=== PATIENT | female | born 1965 | race African-American/Black ===

== ENCOUNTER → 2018-02-22 | Outpatient (CLI) | payer MEDICAID | LOC: SUPIMAGING 15:54 → EDSTATUS 15:59 | PROVIDERS: ATTEND Family Medicine | DX: R05 Cough (principal) | CPT/HCPCS: 71046-PN ==

== ENCOUNTER 2018-03-07 16:48 | Emergency (ER) | payer MEDICAID ==
--- NOTE | 2018-03-07 17:15 | EDPHY ---
H & P Time Seen by Provider: 03/07/18 17:00 HPI/ROS: CHIEF COMPLAINT: Chest pain, shortness of breath HISTORY OF PRESENT ILLNESS: Patient is a 52-year-old female who presents emergency department after having sudden onset of shortness of breath and chest pressure. Patient's symptoms started approximately 30 min prior to arrival. The patient states she was sitting at the counter reading her iPad. She began to notice her vision changing in both eyes. She then became short of breath. She began to breathe rapidly. She felt her chest tightness. She subsequently had spasm in both of her hands. She called EMS. On EMS arrival she was given an aspirin. In route her symptoms improved. The patient denies any chest pain at this time. She has had no leg pain or swelling. No recent travel. The patient does report previous episode of an anxiety attack but it was"not this severe." REVIEW OF SYSTEMS: 10 systems were reveiwed and are negative with the exception of the elements mentioned in the history of present illness. Past Medical/Surgical History: Anxiety, mixed connective tissue disorder, Raynaud's syndrome Smoking Status: Never smoked Physical Exam: Vitals noted GENERAL: Well-appearing, in no acute distress, alert. HEENT: Eyes normal to inspection, normal pharynx, no signs of dehydration. NECK: Normal, supple. RESPIRATORY: Clear to auscultation bilaterally, no rales, rhonchi or wheezing. CVS: Regular rate and rhythm, no rubs, murmurs, or gallops. ABDOMEN: Soft, nontender, nondistended, no organomegaly. BACK: Normal to inspection, no CVA tenderness. SKIN: Normal color, no rash, warm, dry. No pallor. EXTREMITIES: No pedal edema, no calf tenderness, no Homans sign or cords, no joint swelling. NEURO/PSYCH: Alert and oriented, normal mood and affect, normal motor sensory exam. No obvious cranial nerve deficit. Constitutional: Initial Vital Signs Temperature (C) 36.7 C 03/07/18 16:51 Heart Rate 83 03/07/18 16:51 Respiratory Rate 18 03/07/18 16:51 Blood Pressure 139/90 H 03/07/18 16:51 O2 Sat (%) 98 03/07/18 16:51 O2 Delivery Mode Room Air Allergies/Adverse Reactions: prednisone Allergy (Uncoded 03/07/18 16:56) Home Medications: Medication Instructions Recorded Levothyroxine 03/07/18 Medical Decision Making ED Course/Re-evaluation: I met EMS on arrival in took report from the oil expert. I saw the patient at that time. In the emergency department I discussed possible etiologies with the patient. I answered all her questions. Laboratory studies, EKG and chest x -ray were ordered. EKG shows normal sinus rhythm, normal rate, normal axis, normal intervals. There are no ST or T-wave abnormalities. Troponin is 0.0. There is registration issue with the patient's record. Lab orders needed to be resent. On recheck the patient was doing well. She had no complaints. 193: Repeat EKG: EKG shows normal sinus rhythm, normal rate, normal axis, normal intervals. There are no ST or T-wave abnormalities. EKG is normal as interpreted by me. Repeat troponin 0.0 I rechecked the patient. She was without complaints. I discussed possible etiologies with the patient. I discussed limitations of studies thus far. Through shared decision making the patient the patient will be discharged home. She is given warnings prior to leaving. She will return with worsening symptoms. Differential Diagnosis: My differential includes but is not limited to ACS, acute NH, dissection, aneurysm, PE, myocarditis, pericarditis, pancreatitis, cholecystitis, anxiety - Data Points Laboratory Results: Laboratory Results 03/07/18 17:35 03/07/18 17:35 03/07/18 03/07/18 03/07/18 17:39 17:35 17:35 WBC RBC Hgb Hct MCV MCH MCHC RDW Plt Count MPV Neut % (Auto) Lymph % (Auto) Murray % (Auto) Eos % (Auto) Baso % (Auto) Nucleat RBC Rel Count Absolute Neuts (auto) Absolute Lymphs (auto) Absolute Monos (auto) Absolute Eos (auto) Absolute Basos (auto) Absolute Nucleated RBC Immature Gran % Immature Gran # D-Dimer 0.32 ug/mLFEU ug/mLFEU (0.00-0.50) Sodium 138 mEq/L mEq/L (135-145) Potassium 4.2 mEq/L mEq/L (3.5-5.2) Chloride 108 mEq/L mEq/L (97-110) Carbon Dioxide 21 mEq/l L mEq/l (22-31) Anion Gap 9 mEq/L mEq/L (6-14) BUN 15 mg/dL mg/dL (7-23) Creatinine 1.0 mg/dL mg/dL (0.6-1.0) Estimated GFR 59 Glucose 96 mg/dL mg/dL (70-100) Calcium 9.9 mg/dL mg/dL (8.5-10.4) Total Bilirubin 0.6 mg/dL mg/dL (0.1-1.4) Conjugated Bilirubin 0.3 mg/dL mg/dL (0.0-0.5) Unconjugated Bilirubin 0.3 mg/dL mg/dL (0.0-1.1) AST 30 IU/L IU/L (14-46) ALT 36 IU/L IU/L (9-52) Alkaline Phosphatase 79 IU/L IU/L (38-126) POC Troponin I 0.00 ng/mL ng/mL (0.00-0.08) Total Protein 7.7 g/dL g/dL (6.3-8.2) Albumin 4.1 g/dL g/dL (3.5-5.0) Lipase 47 IU/L IU/L (23-300) 03/07/18 03/07/18 03/07/18 17:35 17:31 17:31 WBC 9.55 10^3/uL H 10^3/uL (3.80-9.50) RBC 4.53 10^6/uL 10^6/uL (4.18-5.33) Hgb 14.0 g/dL g/dL (12.6-16.3) Hct 40.7 % % (38.0-47.0) MCV 89.8 fL fL (81.5-99.8) MCH 30.9 pg pg (27.9-34.1) MCHC 34.4 g/dL g/dL (32.4-36.7) RDW 12.3 % % (11.5-15.2) Plt Count 374 10^3/uL 10^3/uL (150-400) MPV 10.6 fL fL (8.7-11.7) Neut % (Auto) 53.4 % % (39.3-74.2) Lymph % (Auto) 34.3 % % (15.0-45.0) Murray % (Auto) 5.9 % % (4.5-13.0) Eos % (Auto) 4.8 % % (0.6-7.6) Baso % (Auto) 0.8 % % (0.3-1.7) Nucleat RBC Rel Count 0.0 % % (0.0-0.2) Absolute Neuts (auto) 5.09 10^3/uL 10^3/uL (1.70-6.50) Absolute Lymphs (auto) 3.28 10^3/uL H 10^3/uL (1.00-3.00) Absolute Monos (auto) 0.56 10^3/uL 10^3/uL (0.30-0.80) Absolute Eos (auto) 0.46 10^3/uL H 10^3/uL (0.03-0.40) Absolute Basos (auto) 0.08 10^3/uL 10^3/uL (0.02-0.10) Absolute Nucleated RBC 0.00 10^3/uL 10^3/uL (0-0.01) Immature Gran % 0.8 % % (0.0-1.1) Immature Gran # 0.08 10^3/uL 10^3/uL (0.00-0.10) D-Dimer Pending Sodium Pending Potassium Pending Chloride Pending Carbon Dioxide Pending Anion Gap Pending BUN Pending Creatinine Pending Estimated GFR Pending Glucose Pending Calcium Pending Total Bilirubin Pending Conjugated Bilirubin Pending Unconjugated Bilirubin Pending AST Pending ALT Pending Alkaline Phosphatase Pending POC Troponin I Total Protein Pending Albumin Pending Lipase Pending 03/07/18 17:31 WBC Pending RBC Pending Hgb Pending Hct Pending MCV Pending MCH Pending MCHC Pending RDW Pending Plt Count Pending MPV Pending Neut % (Auto) Pending Lymph % (Auto) Pending Murray % (Auto) Pending Eos % (Auto) Pending Baso % (Auto) Pending Nucleat RBC Rel Count Pending Absolute Neuts (auto) Pending Absolute Lymphs (auto) Pending Absolute Monos (auto) Pending Absolute Eos (auto) Pending Absolute Basos (auto) Pending Absolute Nucleated RBC Pending Immature Gran % Pending Immature Gran # Pending D-Dimer Sodium Potassium Chloride Carbon Dioxide Anion Gap BUN Creatinine Estimated GFR Glucose Calcium Total Bilirubin Conjugated Bilirubin Unconjugated Bilirubin AST ALT Alkaline Phosphatase POC Troponin I Total Protein Albumin Lipase Point of Care Test Results: Chemistry 03/07/18 17:39 POC Troponin I 0.00 ng/mL ng/mL (0.00-0.08) Departure - Departure Disposition: Home, Routine, Self-Care Clinical Impression: Shortness of breath, Chest pressure Condition: Good Instructions: Chest Pain (ED) Additional Instructions: Return with increased chest pain, shortness of breath, fever or any other concerns. You been given follow-up with oNri Trotter. Call to make the next available appointment Referrals: Nori Trotter [Provider Group] - 2-3 days without fail
[2018-03-07 18:03] LABS: PLATELET COUNT 374 10^3/uL (150-400)
[2018-03-07 19:53] VITALS: BP 142/95
--- NOTE | 2018-03-08 15:47 | CPEKG ---
Test Reason : OPEN Blood Pressure : / mmHG Vent. Rate : 082 BPM Atrial Rate : 083 BPM P-R Int : 145 ms QRS Dur : 093 ms QT Int : 354 ms P-R-T Axes : 031 014 016 degrees QTc Int : 414 ms Sinus rhythm Probable left atrial enlargement Left ventricular hypertrophy Confirmed by Chris Solano ([id number]) on 03/08/2018 3:47:06 PM Referred By: Confirmed By:Chris Solano
--- NOTE | 2018-03-08 22:40 | CPEKG ---
Test Reason : OPEN Blood Pressure : / mmHG Vent. Rate : 077 BPM Atrial Rate : 077 BPM P-R Int : 159 ms QRS Dur : 089 ms QT Int : 392 ms P-R-T Axes : 036 040 046 degrees QTc Int : 444 ms Sinus rhythm Probable left atrial enlargement Confirmed by Ani Morales ([id number]) on 03/08/2018 10:39:47 PM Referred By: Confirmed By:Ani Morales
== END 2018-03-07 19:53 | disposition home or self-care (01) ==
LOC: MERGE 16:48 → EDBD 16:48
DX: R07.9 Chest pain, unspecified (principal); R06.02 Shortness of breath; F41.9 Anxiety disorder, unspecified; I73.00 Raynaud's syndrome without gangrene; M35.1 Other overlap syndromes
CPT/HCPCS: 84484-ER

== ENCOUNTER → 2018-04-15 | Outpatient (CLI) | payer MEDICAID ==
[~2018-04-15] MED LIST: GADOBUTROL 10 ML VIAL IVP ONE
== END ==
LOC: FIMAGING 13:15
PROVIDERS: ATTEND Psychiatry & Neurology Neurology
DX: R94.02 Abnormal brain scan (principal); G43.909 Migraine, unspecified, not intractable, without status migrainosus
CPT/HCPCS: A9585